=== PATIENT | male | born 1985 | race Caucasian/White ===

== ENCOUNTER 2019-06-12 23:03 | Emergency (ER) | payer BC, OTHER ==
[2019-06-12 23:15] VITALS: BMI 22.6
[2019-06-13] MEDS ORDERED: ACETAMINOPHEN 325 MG TABLET (FP) PO ONE (00:15)
[2019-06-13] MEDS ORDERED: guaiFENesin 600 MG TABLET.ER (FP) PO ONE (00:15)
--- NOTE | 2019-06-13 00:23 | PDOC ---
History of Present Illness - General Chief Complaint: Cold Symptoms Stated Complaint: SICK X 1 WEEK Time Seen by Provider: 06/13/19 00:04 History Source: Patient - History of Present Illness Initial Comments: 06/13/19 00:17 33 y/o male with no significant PMHx with 6 week h/o non-productive cough. Here today because he had a fever. States symptoms began in mid April and lasted two weeks. Symptoms then returned earlier this week, here today because he felt feverish at home. No nausea/vomiting, diarrhea/constipation, dysuria/ hematuria. Notes he has smoke exposure on his daily commute to work. Past History - Past Medical History Allergies/Adverse Reactions: Allergies Allergy/AdvReac Type Severity Reaction Status Date / Time No Known Allergies Allergy Verified 07/28/18 09:02 Home Medications: Ambulatory Orders Azithromycin [Zithromax Tri-Horace (3 DAYS) -] 500 mg PO DAILY #3 tablet 06/13/19 COPD: No - Psycho Social/Smoking Cessation Hx Smoking History: Never smoked Hx Alcohol Use: No Drug/Substance Use Hx: No Review of Systems - Review of Systems Constitutional: Yes: Fever HEENTM: No: Recent change in vision Respiratory: Yes: Productive cough. No: Shortness of Breath, Wheezing Cardiac (ROS): No: Chest Pain, Lightheadedness, Palpitations, Syncope ABD/GI: No: Constipated, Diarrhea, Nausea, Vomiting *Physical Exam - Vital Signs Last Vital Signs Temp Pulse Resp BP Pulse Ox 100.9 F H 105 H 19 132/78 98 06/12/19 23:12 06/12/19 23:12 06/12/19 23:12 06/12/19 23:12 06/12/19 23:12 - Physical Exam General Appearance: Yes: Nourished, Appropriately Dressed HEENT: positive: Normal Voice, Hearing Grossly Normal. negative: Pharyngeal Erythema, Tonsillar Exudate, TM Bulging, TM Dull, TM Erythema Neck: positive: Trachea midline, Supple Respiratory/Chest: positive: Lungs Clear, Normal Breath Sounds. negative: Crackles, Wheezing Cardiovascular: positive: S1, S2 Gastrointestinal/Abdominal: positive: Normal Bowel Sounds, Soft Extremity: positive: Normal Capillary Refill, Normal Inspection Integumentary: positive: Normal Color, Dry, Warm Neurologic: positive: spa assistant manager II-XII NML intact, Fully Oriented, Alert ED Treatment Course - RADIOLOGY Radiology Studies Ordered: Category Date Time Status CHEST PA & LAT [RAD] Stat Radiology 06/13/19 00:15 Ordered Medical Decision Making - Medical Decision Making 06/13/19 00:21 33 y/o male with intermittent 6 week h/o cough. Temp 100.9 @ triage Suspect lower respiratory infection - will obtain CXR to r/o PNA. Also consider viral syndrome, bronchitis. Symptomatic treatment with Tylenol, Guanefisen Reassess. 06/13/19 01:33 My read of CXR shows no consolidation/infiltrate Will discharge patient home with supportive care + Azithromycin given persistent symptoms for more than 1 month Clinical Impression: Bronchitis Discharge - Discharge Information Problems reviewed: Yes Clinical Impression/Diagnosis: Sick Condition: Fair Disposition: HOME - Admission No - Additional Discharge Information Prescriptions: Azithromycin [Zithromax Tri-Horace (3 DAYS) -] 500 mg PO DAILY #3 tablet - Follow up/Referral Referrals: Abram Juárez MD [Staff Physician] - - Patient Discharge Instructions Patient Printed Discharge Instructions: DI for Acute Bronchitis Additional Instructions: We have sent a prescription to your pharmacy. Please complete the entire antibiotic course. Drink plenty of water and take Tylenol for any temperature over 100 degrees Fahrenheit. We have provided a referral to a primary care physician or you can call your insurance company for a list of covered doctors. Return to the Emergency Department for any new/worsening/concerning symptoms. - Post Discharge Activity Work/Back to School Note: Back to Work
--- NOTE | 2019-06-13 00:30 | PDOC ---
Attending Attestation - Resident Resident Name: Jon Gaitanica - ED Attending Attestation I have performed the following: I have examined & evaluated the patient, The case was reviewed & discussed with the resident, I agree w/resident's findings & plan, Exceptions are as noted - HPI HPI: 06/13/19 00:26 33yoM w/ cough x 2 weeks. New fever over past 2-3 days. Cough prod of small amounts of sputum. Denies other associated complants. ROS otherwise unermarkable. - Physicial Exam PE: 06/13/19 00:27 NAD, coughing CTABL, no w/r/r, no crackles RRR A&O x 3 - Medical Decision Making 06/13/19 00:29 33yoM w/ cough x 2 weeks, new fevers raise concern for new bacterial PNA on top of viral illness. - CXR - Dispo per results.
[2019-06-13] MEDS ORDERED: ACETAMINOPHEN 325 MG TABLET (FP) ONE (00:44)
[2019-06-13 02:21] VITALS: BP 121/70; PULSE 92; TEMP 99.2
== END 2019-06-13 02:20 | disposition home or self-care (01) ==
LOC: JER 23:03
DX: J40 Bronchitis, not specified as acute or chronic (principal)
CPT/HCPCS: 71046-TC-FY; 99283-25

== ENCOUNTER 2021-12-26 13:58 | Emergency (ER) | payer BC ==
[2021-12-26 14:10] VITALS: BP 113/56; PULSE 69; RESP 18; TEMP 97; BMI 22.6
[2021-12-26] MEDS ORDERED: diazePAM 5 MG TABLET PO ONE (15:19)
[2021-12-26] MEDS ORDERED: KETOROLAC TROMETHAMINE 30 MG/1 ML VIAL IM ONE (15:19)
[2021-12-26] MEDS ORDERED: LIDOCAINE 5% TOPICAL PATCH TP ONE (15:19)
[2021-12-26] MEDS ORDERED: ACETAMINOPHEN 500 MG TABLET (FP) PO ONE (15:19)
[2021-12-26] MEDS ORDERED: KETOROLAC TROMETHAMINE 30 MG/1 ML VIAL ONE (15:22)
[2021-12-26] MEDS ORDERED: LIDOCAINE 5% TOPICAL PATCH ONE (15:22)
[2021-12-26] MEDS ORDERED: ACETAMINOPHEN 500 MG TABLET (FP) ONE (15:22)
[2021-12-26] MEDS ORDERED: diazePAM 5 MG TABLET ONE (15:22)
[2021-12-26] MEDS ORDERED: LIDOCAINE PATCH REMOVAL MC SCH (22:00)
== END 2021-12-26 17:04 | disposition home or self-care (01) ==
LOC: JERFT 13:58
PROC: 3E0233Z Introduction of Anti-inflammatory into Muscle, Percutaneous Approach (ICD-10-PCS; principal; 2021-12-26)
DX: M54.42 Lumbago with sciatica, left side (principal)
CPT/HCPCS: 99284-25